=== PATIENT | male | born 1960 | race Two or more races ===

== ENCOUNTER 2024-06-22 08:11 | Inpatient (IN) | payer OTHER ==
[~2024-06-22] VITALS: Ht 172.7 cm; Wt 63.5 kg
[2024-06-22 07:30] VITALS: BP 103/55; TEMP 98.6; O2SAT 98
[2024-06-22 09:06] LABS: BASOPHILS # (AUTO) 0.2 K/uL (0.0-0.2); BASOPHILS % (AUTO) 0.8 % (0.0-2.0); EOSINOPHILS # (AUTO) 0.5 K/uL (0.0-0.7); EOSINOPHILS % (AUTO) 2.4 % (0.0-6.0); HEMATOCRIT 24 % (39-51); HEMOGLOBIN 8.5 g/dL (13.5-17.5); LYMPHOCYTES # (AUTO) 2.3 K/uL (0.8-4.8); LYMPHOCYTES % (AUTO) 10.9 % (20.0-44.0); MEAN CORPUSCULAR HEMOGLOBIN 33 PG (26.0-33.0); MEAN CORPUSCULAR HGB CONC 35 g/dl (31.0-36.0); MEAN CORPUSCULAR VOLUME 96 fL (80-96); MONOCYTES # (AUTO) 3.6 K/uL (0.1-1.30); MONOCYTES % (AUTO) 16.9 % (2.0-12.0); NEUTROPHILS # (AUTO) 14.6 K/uL (1.8-8.9); PLATELET COUNT (AUTO) 380 K/uL (150-450); RED BLOOD CELL COUNT(AUTO) 2.55 MIL/uL (4.5-6.0); RED CELL DISTRIBUTION WIDTH 14.2 % (11.5-15.0); WHITE BLOOD COUNT (AUTO) 21.2 K/uL (4.3-11.0)
[2024-06-22 09:08] LABS: CALCIUM, SERUM 8.5 mg/dL (8.5-10.1); CREATININE 1.9 mg/dL (0.6-1.3); POTASSIUM 4.5 mmol/L (3.5-5.1)
[2024-06-22 09:14] LABS: BILIRUBIN,TOTAL 0.2 mg/dL (0.2-1.0); TOTAL PROTEIN, SERUM 5.4 g/dL (6.4-8.2)
[2024-06-22 09:16] LABS: LACTIC ACID 1.5 mmol/L (0.4-2.0)
[2024-06-22 09:17] LABS: INR 0.98 (0.91-1.10); PARTIAL THROMBOPLASTIN TIME 29.3 SEC (24.3-34.3); PROTHROMBIN TIME 10.4 SECS (9.2-11.1)
[2024-06-22 09:23] LABS: BILIRUBIN,DIRECT 0.1 mg/dL (0.0-0.2)
[2024-06-22 09:25] LABS: ALBUMIN 1.1 g/dL (3.4-5.0)
[2024-06-22 09:28] LABS: EOSINOPHILS % (MANUAL) 1 % (0-4); LYMPHOCYTES % (MANUAL) 19 % (16-48); MONOCYTES % (MANUAL) 9 % (0-11.0); NEUTROPHILS % (MANUAL) 71 (42-76); PLATELET ESTIMATE ADEQUATE
[2024-06-22] MEDS: VANCOMYCIN 1 GM in IV D5W 250 ML IV ONE (09:30)
[2024-06-22] MEDS: IV NS 0.9% 1,000 ML BAG IV ONE (09:48)
[2024-06-22] MEDS: CEFEPIME 1 GM in IV D5W 50 ML IV ONE (09:48)
[2024-06-22 09:50] LABS: APPEARANCE,URINE CLEAR (CLEAR); BILIRUBIN,URINE NEGATIVE (NEGATIVE); BLOOD, URINE 2+ Ery/uL (NEGATIVE); COLOR,URINE YELLOW (YELLOW); KETONES,URINE NEGATIVE (NEGATIVE); LEUKOCYTE ESTERASE ,URINE NEGATIVE (NEGATIVE); NITRITE, URINE NEGATIVE (NEGATIVE); PROTEIN,URINE 3+ mg/dl (NEGATIVE); UGLUCOSE NEGATIVE (NEGATIVE); UROBILINOGEN,URINE 0.2 EU/dL (0.2)
[2024-06-22 10:01] LABS: ADD URINE CULTURE YES; BACTERIA,URINE Few /HPF (None Seen); RBC,URINE 21-50 /HPF (0-2); SQUAMOUS EPITHELIAL CELL,UR None Seen /HPF (None Seen)
[2024-06-22] MEDS ORDERED: IOHEXOL-350 100 ML VIAL IV ONE (10:03)
[2024-06-22] MEDS ORDERED: CT SWABBABLE VALVE TRANS SET 1 EA INFUS.SET MC ONE (10:03)
[2024-06-22] MEDS ORDERED: LACT-215 PO (11:41)
[2024-06-22] MEDS ORDERED: VERA120T10 PO (11:41)
[2024-06-22] MEDS ORDERED: DOCU100C36 PO (11:41)
[2024-06-22] MEDS ORDERED: IPRA3AMP23 NEB (11:41)
[2024-06-22] MEDS ORDERED: DIVA125C5 PO (11:41)
[2024-06-22] MEDS ORDERED: BUDE90AE IH (11:41)
[2024-06-22] MEDS ORDERED: ATOR40TA PO (11:41)
[2024-06-22] MEDS ORDERED: CITA20TA16 PO (11:41)
[2024-06-22] MEDS ORDERED: HYDR-4303 PO (11:41)
[2024-06-22] MEDS ORDERED: CHLO25TA2 PO (11:41)
[2024-06-22] MEDS ORDERED: AMIN30LI2 PO (11:41)
[2024-06-22] MEDS ORDERED: ZOLP5TAB8 PO (11:41)
[2024-06-22] MEDS ORDERED: ACET325T53 PO (11:41)
[2024-06-22] MEDS ORDERED: MAGNESIUM HYDROXIDE 30 ML UDC PO PRN (14:00)
[2024-06-22] MEDS ORDERED: MAG HYDROX/AL HYDROX/SIMETH 30 ML UDC PO PRN (14:00)
[2024-06-22] MEDS ORDERED: ONDANSETRON HCL/PF 4 MG/2 ML VIAL IVP PRN (14:00)
[2024-06-22 16:00] VITALS: BP 150/80; TEMP 99.1; O2SAT 88
[2024-06-22] MEDS: IV NS 0.9% 1,000 ML IV SCH (17:35)
[2024-06-22] MEDS: NICOTINE PATCH (14MG) 14 MG PATCH.TD24 TD SCH (17:39)
[2024-06-22] MEDS: CITALOPRAM HYDROBROMIDE 20 MG TABLET PO SCH (18:16)
[2024-06-22] MEDS ORDERED: ZOLPIDEM TARTRATE 5 MG TABLET PO PRN (18:30)
[2024-06-22 20:00] VITALS: BP 165/93; TEMP 99; O2SAT 93
[2024-06-22] MEDS: VANCOMYCIN 500 MG in IV D5W 100ml IV SCH (20:20)
[2024-06-22 21:02] VITALS: BP 165/93; TEMP 99; O2SAT 93
[2024-06-22] MEDS: ATORVASTATIN 40 MG TABLET PO SCH (21:39)
[2024-06-22] MEDS: ACETAMINOPHEN 325 MG TABLET PO PRN (23:31)
[2024-06-22] MEDS: ALPRAZOLAM 0.25 MG TABLET PO PRN (23:53)
[2024-06-23 01:30] VITALS: BP 135/83; TEMP 98.9; O2SAT 94
[2024-06-23 01:42] VITALS: BP 138/85
[2024-06-23 07:30] VITALS: BP 154/91; TEMP 98.2; O2SAT 93
[2024-06-23 07:58] LABS: BASOPHILS # (AUTO) 0.2 K/uL (0.0-0.2); BASOPHILS % (AUTO) 0.8 % (0.0-2.0); EOSINOPHILS # (AUTO) 0.5 K/uL (0.0-0.7); EOSINOPHILS % (AUTO) 2.5 % (0.0-6.0); HEMATOCRIT 25 % (39-51); HEMOGLOBIN 8.8 g/dL (13.5-17.5); LYMPHOCYTES # (AUTO) 1.8 K/uL (0.8-4.8); LYMPHOCYTES % (AUTO) 8.8 % (20.0-44.0); MEAN CORPUSCULAR HEMOGLOBIN 33 PG (26.0-33.0); MEAN CORPUSCULAR HGB CONC 35 g/dl (31.0-36.0); MEAN CORPUSCULAR VOLUME 95 fL (80-96); MONOCYTES % (AUTO) 14.5 % (2.0-12.0); NEUTROPHILS # (AUTO) 15.2 K/uL (1.8-8.9); NEUTROPHILS % (AUTO) 73.4 % (43.0-81.0); PLATELET COUNT (AUTO) 422 K/uL (150-450); RED BLOOD CELL COUNT(AUTO) 2.66 MIL/uL (4.5-6.0); RED CELL DISTRIBUTION WIDTH 13.5 % (11.5-15.0); WHITE BLOOD COUNT (AUTO) 20.6 K/uL (4.3-11.0)
[2024-06-23 08:11] LABS: CALCIUM, SERUM 8.5 mg/dL (8.5-10.1); CREATININE 1.5 mg/dL (0.6-1.3); MAGNESIUM 2.4 mg/dL (1.8-2.4); POTASSIUM 4.2 mmol/L (3.5-5.1)
[2024-06-23] MEDS: CEFEPIME 2 GM in IV D5W 100 ML IV SCH ×2 (08:17→21:07)
[2024-06-23] MEDS: DIVALPROEX SODIUM 125 MG CAP.SPRINK PO SCH (08:38)
[2024-06-23] MEDS: DOCUSATE SODIUM 100 MG CAPSULE PO SCH (08:39)
[2024-06-23] MEDS: IV NS 0.9% 1,000 ML IV PRN (11:28)
[2024-06-23] MEDS: VANCOMYCIN 500 MG in IV D5W 100ml IV SCH (12:54)
[2024-06-23] MEDS ORDERED: IPRATROPIUM NEB FS 0.5 MG/2.5 ML AMPUL.NEB NEB PRN (15:00)
[2024-06-23] MEDS ORDERED: ALBUTEROL HALF STRENGTH 1.25 MG/3 ML VIAL.NEB NEB PRN (15:00)
[2024-06-23] MEDS: ENOXAPARIN SODIUM 40 MG/0.4 ML DISP.SYRIN SQ SCH (15:28)
[2024-06-23 15:45] VITALS: BP 146/91; TEMP 99.9; O2SAT 94
[2024-06-23 20:00] VITALS: BP 171/98; TEMP 99; O2SAT 93
[2024-06-23 22:30] VITALS: BP 150/90; TEMP 98.9; O2SAT 95
[2024-06-24 07:37] LABS: BASOPHILS # (AUTO) 0.2 K/uL (0.0-0.2); EOSINOPHILS # (AUTO) 0.8 K/uL (0.0-0.7); HEMATOCRIT 27 % (39-51); HEMOGLOBIN 9.4 g/dL (13.5-17.5); LYMPHOCYTES # (AUTO) 2.3 K/uL (0.8-4.8); LYMPHOCYTES % (AUTO) 11.7 % (20.0-44.0); MEAN CORPUSCULAR HEMOGLOBIN 34 PG (26.0-33.0); MEAN CORPUSCULAR HGB CONC 35 g/dl (31.0-36.0); MEAN CORPUSCULAR VOLUME 96 fL (80-96); MONOCYTES # (AUTO) 2.3 K/uL (0.1-1.30); MONOCYTES % (AUTO) 11.5 % (2.0-12.0); NEUTROPHILS # (AUTO) 14.2 K/uL (1.8-8.9); NEUTROPHILS % (AUTO) 71.8 % (43.0-81.0); PLATELET COUNT (AUTO) 488 K/uL (150-450); RED BLOOD CELL COUNT(AUTO) 2.77 MIL/uL (4.5-6.0); RED CELL DISTRIBUTION WIDTH 13.7 % (11.5-15.0); WHITE BLOOD COUNT (AUTO) 19.7 K/uL (4.3-11.0)
[2024-06-24 07:47] LABS: CALCIUM, SERUM 8.5 mg/dL (8.5-10.1); CREATININE 1.6 mg/dL (0.6-1.3); MAGNESIUM 2.4 mg/dL (1.8-2.4); PHOSPHORUS 4.3 mg/dL (2.5-4.9); POTASSIUM 4.3 mmol/L (3.5-5.1)
[2024-06-24 10:22] LABS: ABG BASE EXCESS -3.6 mmol/L (-2.0-3.0); ABG OXYGEN SATURATION 94.7 % (94.0-98.0); ABG PCO2 31.5 mmHg (35.0-48.0); ABG PH 7.424 (7.350-7.450); ABG PO2 77.3 mmHg (83.0-108.0); ABG TOTAL HEMOGLOBIN 9.1 G/dL (13.5-17.5); COHb 0.2 % (0.5-1.5); MetHb 0.2 % (0.0-1.5); O2Hb 94.3 % (94.0-97.0); SITE, ABG RIGHT RADIAL
[2024-06-24] MEDS: VANCOMYCIN 1 GM in IV D5W 250ml IV SCH (12:38)
[2024-06-24 16:00] VITALS: BP 125/102; TEMP 98.1; O2SAT 96
[2024-06-24 17:09] LABS: ANISOCYTOSIS 1+; BAND % (MANUAL) 2 % (0.0-5.0); EOSINOPHILS % (MANUAL) 8 % (0-4); LYMPHOCYTES % (MANUAL) 11 % (16-48); METAMYELOCYTES % 1 % (0-0); MONOCYTES % (MANUAL) 12 % (0-11.0); NEUTROPHILS % (MANUAL) 66 (42-76); PLATELET ESTIMATE INCREASED
[2024-06-24 17:12] LABS: OVALOCYTES OCC
[2024-06-24 20:00] VITALS: BP 158/86; TEMP 98.2; O2SAT 97
[2024-06-25 07:38] LABS: BASOPHILS # (AUTO) 0.1 K/uL (0.0-0.2); BASOPHILS % (AUTO) 0.7 % (0.0-2.0); EOSINOPHILS # (AUTO) 0.6 K/uL (0.0-0.7); EOSINOPHILS % (AUTO) 3.4 % (0.0-6.0); HEMATOCRIT 24 % (39-51); HEMOGLOBIN 8.4 g/dL (13.5-17.5); LYMPHOCYTES # (AUTO) 1.5 K/uL (0.8-4.8); LYMPHOCYTES % (AUTO) 8.8 % (20.0-44.0); MEAN CORPUSCULAR HEMOGLOBIN 34 PG (26.0-33.0); MEAN CORPUSCULAR HGB CONC 36 g/dl (31.0-36.0); MEAN CORPUSCULAR VOLUME 95 fL (80-96); MONOCYTES % (AUTO) 11.5 % (2.0-12.0); NEUTROPHILS # (AUTO) 12.8 K/uL (1.8-8.9); NEUTROPHILS % (AUTO) 75.6 % (43.0-81.0); PLATELET COUNT (AUTO) 505 K/uL (150-450); RED BLOOD CELL COUNT(AUTO) 2.48 MIL/uL (4.5-6.0); RED CELL DISTRIBUTION WIDTH 13.8 % (11.5-15.0)
[2024-06-25 08:14] LABS: CALCIUM, SERUM 7.9 mg/dL (8.5-10.1); CREATININE 1.5 mg/dL (0.6-1.3); MAGNESIUM 2.1 mg/dL (1.8-2.4); PHOSPHORUS 4.2 mg/dL (2.5-4.9); POTASSIUM 3.9 mmol/L (3.5-5.1)
[2024-06-25 16:00] VITALS: BP 177/95; TEMP 98.8; O2SAT 93
[2024-06-25 17:13] LABS: BAND % (MANUAL) 1 % (0.0-5.0); LYMPHOCYTES % (MANUAL) 7 % (16-48); MONOCYTES % (MANUAL) 3 % (0-11.0); MYELOCYTES % 2 % (0-0); NEUTROPHILS % (MANUAL) 87 (42-76)
[2024-06-25 17:14] LABS: PLATELET ESTIMATE INCREASED
[2024-06-25 20:00] VITALS: BP 150/94; TEMP 98.1; O2SAT 95
[2024-06-26] VITALS (7 sets, daily range): BP systolic 144–179; BP diastolic 82–109; TEMP 97.5–99; O2SAT 92–96
[2024-06-26] MEDS ORDERED: VANCOMYCIN 1 GM in IV D5W 250ml IV SCH (01:00)
[2024-06-26 07:18] LABS: CALCIUM, SERUM 8.4 mg/dL (8.5-10.1); CREATININE 1.6 mg/dL (0.6-1.3)
[2024-06-26 07:43] LABS: BASOPHILS # (AUTO) 0.1 K/uL (0.0-0.2); BASOPHILS % (AUTO) 0.4 % (0.0-2.0); EOSINOPHILS # (AUTO) 0.3 K/uL (0.0-0.7); EOSINOPHILS % (AUTO) 1.8 % (0.0-6.0); HEMATOCRIT 25 % (39-51); HEMOGLOBIN 8.8 g/dL (13.5-17.5); LYMPHOCYTES # (AUTO) 1.6 K/uL (0.8-4.8); LYMPHOCYTES % (AUTO) 8.4 % (20.0-44.0); MEAN CORPUSCULAR HEMOGLOBIN 33 PG (26.0-33.0); MEAN CORPUSCULAR HGB CONC 35 g/dl (31.0-36.0); MEAN CORPUSCULAR VOLUME 95 fL (80-96); MONOCYTES # (AUTO) 2.2 K/uL (0.1-1.30); MONOCYTES % (AUTO) 11.9 % (2.0-12.0); NEUTROPHILS # (AUTO) 14.5 K/uL (1.8-8.9); NEUTROPHILS % (AUTO) 77.5 % (43.0-81.0); PLATELET COUNT (AUTO) 554 K/uL (150-450); RED BLOOD CELL COUNT(AUTO) 2.63 MIL/uL (4.5-6.0); RED CELL DISTRIBUTION WIDTH 13.9 % (11.5-15.0); WHITE BLOOD COUNT (AUTO) 18.7 K/uL (4.3-11.0)
[2024-06-26 10:45] LABS: EOSINOPHILS % (MANUAL) 5 % (0-4); LYMPHOCYTES % (MANUAL) 14 % (16-48); MONOCYTES % (MANUAL) 9 % (0-11.0); NEUTROPHILS % (MANUAL) 72 (42-76)
[2024-06-26 10:46] LABS: PLATELET ESTIMATE INCREASED
[2024-06-26 10:48] LABS: ANISOCYTOSIS 1+
[2024-06-26 14:23] LABS: POTASSIUM 3.6 mmol/L (3.5-5.1)
[2024-06-26] MEDS: DOCUSATE SODIUM LIQ 100 MG/10 ML UDC PO SCH (17:42)
[2024-06-26] MEDS: VERAPAMIL SR 120 MG TABLET.SA PO SCH (20:52)
[2024-06-27 06:48] LABS: CALCIUM, SERUM 8.2 mg/dL (8.5-10.1); CREATININE 1.5 mg/dL (0.6-1.3); POTASSIUM 3.4 mmol/L (3.5-5.1)
[2024-06-27 06:53] LABS: BASOPHILS # (AUTO) 0.1 K/uL (0.0-0.2); BASOPHILS % (AUTO) 0.5 % (0.0-2.0); EOSINOPHILS # (AUTO) 0.4 K/uL (0.0-0.7); HEMATOCRIT 24 % (39-51); HEMOGLOBIN 8.5 g/dL (13.5-17.5); LYMPHOCYTES # (AUTO) 1.4 K/uL (0.8-4.8); LYMPHOCYTES % (AUTO) 7.2 % (20.0-44.0); MEAN CORPUSCULAR HEMOGLOBIN 34 PG (26.0-33.0); MEAN CORPUSCULAR HGB CONC 36 g/dl (31.0-36.0); MEAN CORPUSCULAR VOLUME 94 fL (80-96); MONOCYTES # (AUTO) 1.9 K/uL (0.1-1.30); MONOCYTES % (AUTO) 9.7 % (2.0-12.0); NEUTROPHILS # (AUTO) 15.9 K/uL (1.8-8.9); NEUTROPHILS % (AUTO) 80.6 % (43.0-81.0); PLATELET COUNT (AUTO) 548 K/uL (150-450); WHITE BLOOD COUNT (AUTO) 19.7 K/uL (4.3-11.0)
[2024-06-27 07:54] VITALS: BP 162/78; TEMP 98.1; O2SAT 98
[2024-06-27 08:38] VITALS: BP 162/78; TEMP 98.1; O2SAT 98
[2024-06-27] MEDS ORDERED: POTASSIUM CHLORIDE 10 MEQ TABLET.SA PO ONE (10:00)
[2024-06-27] MEDS ORDERED: POTASSIUM CHLORIDE 20 MEQ POWDER PACKET PO SCH (11:00)
[2024-06-27 16:22] VITALS: BP 148/85; TEMP 98.1; O2SAT 96
[2024-06-27 20:00] VITALS: BP 153/88; TEMP 98.2; O2SAT 96
[2024-06-27] MEDS: MIRTAZAPINE 15 MG TABLET PO SCH (21:58)
[2024-06-28 06:24] LABS: BASOPHILS # (AUTO) 0.1 K/uL (0.0-0.2); BASOPHILS % (AUTO) 0.7 % (0.0-2.0); EOSINOPHILS # (AUTO) 0.8 K/uL (0.0-0.7); EOSINOPHILS % (AUTO) 5.1 % (0.0-6.0); HEMATOCRIT 22 % (39-51); HEMOGLOBIN 7.8 g/dL (13.5-17.5); LYMPHOCYTES % (AUTO) 19.6 % (20.0-44.0); MEAN CORPUSCULAR HEMOGLOBIN 34 PG (26.0-33.0); MEAN CORPUSCULAR HGB CONC 36 g/dl (31.0-36.0); MEAN CORPUSCULAR VOLUME 94 fL (80-96); MONOCYTES % (AUTO) 13.1 % (2.0-12.0); NEUTROPHILS # (AUTO) 9.3 K/uL (1.8-8.9); NEUTROPHILS % (AUTO) 61.5 % (43.0-81.0); PLATELET COUNT (AUTO) 573 K/uL (150-450); RED BLOOD CELL COUNT(AUTO) 2.34 MIL/uL (4.5-6.0); RED CELL DISTRIBUTION WIDTH 13.9 % (11.5-15.0); WHITE BLOOD COUNT (AUTO) 15.1 K/uL (4.3-11.0)
[2024-06-28 06:38] LABS: CALCIUM, SERUM 8.2 mg/dL (8.5-10.1); CREATININE 1.7 mg/dL (0.6-1.3); MAGNESIUM 2.2 mg/dL (1.8-2.4); PHOSPHORUS 4.2 mg/dL (2.5-4.9); POTASSIUM 3.6 mmol/L (3.5-5.1)
[2024-06-28 07:07] LABS: SERUM AMMONIA 36 umol/L (11-32)
[2024-06-28 07:37] LABS: VALPROIC ACID 9 ug/mL (50-100)
[2024-06-28 08:00] VITALS: BP 151/90; TEMP 97.9; O2SAT 96
[2024-06-28] MEDS: CITALOPRAM HYDROBROMIDE 20 MG TABLET PO SCH (08:58)
[2024-06-28 16:00] VITALS: BP 141/79; TEMP 98.1; O2SAT 92
[2024-06-28 20:00] VITALS: BP 151/80; TEMP 98.6; O2SAT 93
[2024-06-29] MEDS: Z GUARD REMEDY 4 OZ OINT TP PRN (05:58)
[2024-06-29 06:32] LABS: BASOPHILS # (AUTO) 0.1 K/uL (0.0-0.2); BASOPHILS % (AUTO) 0.7 % (0.0-2.0); EOSINOPHILS # (AUTO) 0.9 K/uL (0.0-0.7); EOSINOPHILS % (AUTO) 6.4 % (0.0-6.0); HEMATOCRIT 23 % (39-51); HEMOGLOBIN 7.9 g/dL (13.5-17.5); LYMPHOCYTES # (AUTO) 3.4 K/uL (0.8-4.8); LYMPHOCYTES % (AUTO) 23.9 % (20.0-44.0); MEAN CORPUSCULAR HEMOGLOBIN 33 PG (26.0-33.0); MEAN CORPUSCULAR HGB CONC 35 g/dl (31.0-36.0); MEAN CORPUSCULAR VOLUME 95 fL (80-96); MONOCYTES # (AUTO) 1.7 K/uL (0.1-1.30); NEUTROPHILS # (AUTO) 8.2 K/uL (1.8-8.9); PLATELET COUNT (AUTO) 620 K/uL (150-450); RED BLOOD CELL COUNT(AUTO) 2.37 MIL/uL (4.5-6.0); RED CELL DISTRIBUTION WIDTH 14.3 % (11.5-15.0); WHITE BLOOD COUNT (AUTO) 14.3 K/uL (4.3-11.0)
[2024-06-29 07:08] LABS: CREATININE 1.8 mg/dL (0.6-1.3); POTASSIUM 3.5 mmol/L (3.5-5.1)
[2024-06-29 08:00] VITALS: BP 158/82; TEMP 98.2; O2SAT 93
[2024-06-29 09:18] LABS: EOSINOPHILS % (MANUAL) 3 % (0-4); LYMPHOCYTES % (MANUAL) 23 % (16-48); MONOCYTES % (MANUAL) 12 % (0-11.0); NEUTROPHILS % (MANUAL) 62 (42-76); PLATELET ESTIMATE INCREASED
[2024-06-29 13:00] LABS: APPEARANCE,URINE CLEAR (CLEAR); BILIRUBIN,URINE NEGATIVE (NEGATIVE); BLOOD, URINE 2+ Ery/uL (NEGATIVE); COLOR,URINE YELLOW (YELLOW); KETONES,URINE TRACE mg/dL (NEGATIVE); LEUKOCYTE ESTERASE ,URINE NEGATIVE (NEGATIVE); NITRITE, URINE NEGATIVE (NEGATIVE); PROTEIN,URINE 3+ mg/dl (NEGATIVE); UGLUCOSE NEGATIVE (NEGATIVE); UROBILINOGEN,URINE 0.2 EU/dL (0.2)
[2024-06-29 13:10] LABS: ADD URINE CULTURE NO; BACTERIA,URINE Few /HPF (None Seen); MUCUS,URINE Few /LPF (None Seen); SQUAMOUS EPITHELIAL CELL,UR None Seen /HPF (None Seen); WBC,URINE 0-2 /HPF (0-3)
[2024-06-29 13:19] LABS: CREATININE, URINE 126.4 MG/DL (30.0-125.0); URINE TOTAL PROTEIN 681.3 mg/dL (0-11.9)
[2024-06-29 13:29] LABS: EOSINOPHIL,URINE None Seen
[2024-06-29 16:00] VITALS: BP 147/90; TEMP 97.9; O2SAT 95
[2024-06-29] MEDS: IV D5W 1,000 ML IV PRN (21:50)
[2024-06-29] MEDS: CLONIDINE HCL 0.1 MG TABLET PO PRN (22:42)
[2024-06-30 06:33] VITALS: BP 161/89; TEMP 98; O2SAT 95
[2024-06-30 07:00] VITALS: BP 159/85; O2SAT 97
[2024-06-30 09:15] LABS: BASOPHILS # (AUTO) 0.1 K/uL (0.0-0.2); BASOPHILS % (AUTO) 0.5 % (0.0-2.0); EOSINOPHILS # (AUTO) 0.9 K/uL (0.0-0.7); EOSINOPHILS % (AUTO) 5.7 % (0.0-6.0); HEMATOCRIT 27 % (39-51); HEMOGLOBIN 8.9 g/dL (13.5-17.5); LYMPHOCYTES # (AUTO) 2.1 K/uL (0.8-4.8); LYMPHOCYTES % (AUTO) 13.7 % (20.0-44.0); MEAN CORPUSCULAR HEMOGLOBIN 32 PG (26.0-33.0); MEAN CORPUSCULAR HGB CONC 34 g/dl (31.0-36.0); MEAN CORPUSCULAR VOLUME 95 fL (80-96); MONOCYTES # (AUTO) 1.7 K/uL (0.1-1.30); NEUTROPHILS # (AUTO) 10.6 K/uL (1.8-8.9); NEUTROPHILS % (AUTO) 69.1 % (43.0-81.0); PLATELET COUNT (AUTO) 747 K/uL (150-450); RED BLOOD CELL COUNT(AUTO) 2.78 MIL/uL (4.5-6.0); RED CELL DISTRIBUTION WIDTH 14.3 % (11.5-15.0); WHITE BLOOD COUNT (AUTO) 15.3 K/uL (4.3-11.0)
[2024-06-30 09:18] LABS: CALCIUM, SERUM 8.4 mg/dL (8.5-10.1); CREATININE 1.5 mg/dL (0.6-1.3); POTASSIUM 3.5 mmol/L (3.5-5.1)
[2024-06-30 09:25] VITALS: BP 159/85
[2024-06-30] MEDS ORDERED: LEVO500T90 PO (09:51)
[2024-06-30] MEDS ORDERED: VERA120T10 PO (10:00)
[2024-06-30 20:06] LABS: ANISOCYTOSIS 1+; EOSINOPHILS % (MANUAL) 4 % (0-4); LYMPHOCYTES % (MANUAL) 14 % (16-48); MONOCYTES % (MANUAL) 4 % (0-11.0); NEUTROPHILS % (MANUAL) 78 (42-76); PLATELET ESTIMATE INCREASED
== END 2024-06-30 15:10 | DRG 137 ==
LOC: ER 08:20 → TELE 11:33 → MED 17:41
PROVIDERS: ADMIT Nurse Practitioner Acute Care; ATTEND Internal Medicine
DX: J15.69 Pneumonia due to other Gram-negative bacteria (principal); J96.01 Acute respiratory failure with hypoxia; E87.0 Hyperosmolality and hypernatremia; E46 Unspecified protein-calorie malnutrition; E83.9 Disorder of mineral metabolism, unspecified; D63.8 Anemia in other chronic diseases classified elsewhere; N17.9 Acute kidney failure, unspecified; E86.0 Dehydration; E78.5 Hyperlipidemia, unspecified; E88.09 Other disorders of plasma-protein metabolism, not elsewhere classified; G89.4 Chronic pain syndrome; E86.1 Hypovolemia; F17.210 Nicotine dependence, cigarettes, uncomplicated; D72.829 Elevated white blood cell count, unspecified; N18.9 Chronic kidney disease, unspecified; Z68.21 Body mass index [BMI] 21.0-21.9, adult; Z20.822 Contact with and (suspected) exposure to COVID-19; F39 Unspecified mood [affective] disorder; I12.9 Hypertensive chronic kidney disease with stage 1 through stage 4 chronic kidney disease, or unspecified chronic kidney disease; F03.93 Unspecified dementia, unspecified severity, with mood disturbance
CPT/HCPCS: 36415; 36600; 71045-TC; 76770-TC; 80048-TC; 80076-TC; 80164-TC; 80202-TC; 81001; 82140-TC; 82570-TC; 82803-TC; 83605-TC; 83735-TC; 84100-TC; 84300-TC; 85025-TC; 85378-TC; 85652-TC; 85730-TC; 86225; 86235; 86706; 86803; 87040-TC; 87081-TC; 87086-TC; 87340; 92526; 92611-TC; 94799-TC; 97110-TC; 97112-TC; 97530-TC; A4223; G0378; J0692; J1650; J3370; J7030; J7040; J7050; J7060; J7070; Q9967